=== PATIENT | male | born 1940 | race Caucasian/White ===

== ENCOUNTER 2017-12-16 07:48 | Day surgery (SDC) | payer MEDICARE, SELFPAY ==
[2017-12-16] MEDS: PROPARACAINE 0.5% OPHTH SOL 2 DROPS EYE-OP (08:32)
[2017-12-16] MEDS: CATARACT EYE COMPOUND (10 DROPS/SYRINGE) 3 DROPS EYE-OP (08:34)
[2017-12-16 08:36] VITALS: BP 136/66; PULSE 70; RESP 16; TEMP 36.4; O2SAT 97
--- NOTE | 2017-12-16 09:39 | SUR.OPER ---
Supine on eye stretcher, head on extension cradle secured with tape. Arms tucked at sides with blanket. Pillow under knees.
[2017-12-16] MEDS: CHONDROIDTIN/SOD HYALURONATE 1.05 ML SYRINGE INTRAOCULA (09:43)
[2017-12-16] MEDS: LIDOCAINE JELLY 2% 5 ML 1 APPLIC TOP (09:43)
[2017-12-16] MEDS: TETRACAINE 0.5% OPHTH DROPS 15 ML 2 DROPS EYE-RIGHT (09:44)
[2017-12-16] MEDS: MOXIFLOXACIN OPHTH DROPS 3 ML BOTTLE 2 DROPS INJ (09:44)
[2017-12-16] MEDS: PHENYLEPHRINE/LIDOCAINE 3ML VIAL (OR) EYE-OP (09:44)
[2017-12-16] MEDS: TRIAMCINOLONE 50 MG/5 ML VIAL INJ (09:44)
[2017-12-16] MEDS: BALANCED SALT IRRIG SOLN NO.2 500 ML, EPINEPHrine 1 MG IRR (09:45)
--- NOTE | 2017-12-16 09:51 | P.OP_ITS ---
Operative Date/Time/Diagnoses - Pre-op diagnosis: Cataract Right eye Post-op diagnosis: same Procedure & Clinicians Procedure: Cataract Surgery Same procedure as scheduled: Yes Surgeon: Willie Osorio Anesthesia Type: MAC +/- and Sedation Operative Notes Procedure in detail: Patient brought to the operating suite. Tetracaine drops placed in the right eye. Patient was prepped and draped in sterile manner. Wire lid speculum was placed in the eye. Betadine drops were placed on the eye. This was irrigated. Lidocaine jelly was placed on the eye. A paracentesis port was created with a side-port blade. 0.1 mL 1% preservative free lidocaine was injected into the anterior chamber. The anterior chamber was deepened with viscoelastic. 2.6 mm keratome was used to create a temporal clear corneal incision. Cystotome and Utrata forceps were used to create continuous tear capsulorrhexis. Balanced salt solution was used to hydro dissect the nucleus. The phacoemulsification handpiece was inserted and the nucleus was removed using the stop and chop technique. The irrigation aspiration handpiece was inserted and the remaining cortex was removed. Anterior chamber was deepened with viscoelastic. An Harper ZCB00 intraocular lens with a power of 21.5 was injected into the capsular bag. Irrigation aspiration handpiece was inserted and the remaining viscoelastic was removed. Incision was hydrated with balanced salt solution and found to be leak free with pressure with Weck- Socorro sponges. 0.1 mL Vigamox injected anterior chamber. 0.3 mL Kenalog 10 mg was injected subconjunctivally. Lid speculum was removed. The patient left the operating room in excellent condition. Complications: none Condition: stable Disposition: same day surgery
[2017-12-16 09:55] VITALS: BP 132/71; PULSE 63; RESP 16; TEMP 36.3; O2SAT 95
== END 2017-12-16 10:00 | disposition home or self-care (01) ==
PROVIDERS: Family Provider Internal Medicine; PCP Internal Medicine; Visit Provider Ophthalmology
DX: H25.11 Age-related nuclear cataract, right eye (principal); I10 Essential (primary) hypertension
CPT/HCPCS: J0171; J2250; J3010; J3301

== ENCOUNTER 2017-12-30 08:03 | Day surgery (SDC) | payer MEDICARE, SELFPAY ==
[2017-12-30 08:31] VITALS: BP 133/66; PULSE 60; RESP 16; TEMP 36.4; O2SAT 98
[2017-12-30] MEDS: PROPARACAINE 0.5% OPHTH SOL 2 DROPS EYE-OP (08:34)
[2017-12-30] MEDS: CATARACT EYE COMPOUND (10 DROPS/SYRINGE) 3 DROPS EYE-OP ×3 (08:40→08:50)
--- NOTE | 2017-12-30 09:37 | PM.PREOP ---
Pre-operative Note Interval Note Pre-op Check: History & Physical Reviewed by Physician
--- NOTE | 2017-12-30 09:42 | PM.PREOP ---
Pre-operative Note Interval Note Pre-op Check: History & Physical Reviewed by Physician
[2017-12-30] MEDS: TRIAMCINOLONE 50 MG/5 ML VIAL INJ (09:49)
[2017-12-30] MEDS: CHONDROIDTIN/SOD HYALURONATE 1.05 ML SYRINGE INTRAOCULA (09:49)
[2017-12-30] MEDS: MOXIFLOXACIN OPHTH DROPS 3 ML BOTTLE 2 DROPS INJ (09:49)
[2017-12-30] MEDS: TETRACAINE 0.5% OPHTH DROPS 15 ML 2 DROPS EYE-LEFT (09:50)
[2017-12-30] MEDS: PHENYLEPHRINE/LIDOCAINE 3ML VIAL (OR) EYE-OP (09:51)
[2017-12-30] MEDS: LIDOCAINE JELLY 2% 5 ML 1 APPLIC TOP (09:52)
--- NOTE | 2017-12-30 10:01 | P.OP_ITS ---
Operative Date/Time/Diagnoses - Pre-op diagnosis: Cataract Left eye Post-op diagnosis: same Procedure & Clinicians Surgeon: Willie Osorio Anesthesia Type: MAC +/- and Sedation Operative Notes Procedure in detail: Patient brought to the operating suite. Tetracaine drops placed in the left eye. Patient was prepped and draped in sterile manner. Wire lid speculum was placed in the eye. Betadine drops were placed on the eye. This was irrigated. Lidocaine jelly was placed on the eye. A paracentesis port was created with a side-port blade. 0.1 mL 1% preservative free lidocaine was injected into the anterior chamber. The anterior chamber was deepened with viscoelastic. 2.6 mm keratome was used to create a temporal clear corneal incision. Cystotome and Utrata forceps were used to create continuous tear capsulorrhexis. Balanced salt solution was used to hydro dissect the nucleus. The phacoemulsification handpiece was inserted and the nucleus was removed using the stop and chop technique. The irrigation aspiration handpiece was inserted and the remaining cortex was removed. Anterior chamber was deepened with viscoelastic. An Harper ZCB00 intraocular lens with a power of 21.0 was injected into the capsular bag. Irrigation aspiration handpiece was inserted and the remaining viscoelastic was removed. Incision was hydrated with balanced salt solution and found to be leak free with pressure with Weck- Socorro sponges. 0.1 mL Vigamox injected anterior chamber. 0.3 mL Kenalog 10 mg was injected subconjunctivally. Lid speculum was removed. The patient left the operating room in excellent condition. Complications: none Condition: stable Disposition: same day surgery
[2017-12-30 10:15] VITALS: BP 122/71; PULSE 53; RESP 16; TEMP 36.6; O2SAT 96
== END 2017-12-30 10:14 ==
PROVIDERS: PCP Internal Medicine; Visit Provider Ophthalmology
DX: H25.12 Age-related nuclear cataract, left eye (principal); I10 Essential (primary) hypertension
CPT/HCPCS: J2250; J3010; J3301

== ENCOUNTER → 2019-08-04 08:44 | Outpatient (CLI) | payer MEDICARE, SELFPAY ==
[2019-08-04 10:09] LABS: Aspartate Aminotransferase 28 IU/L (17-59); Blood Urea Nitrogen 22 mg/dL (9-20); Calcium 9.6 mg/dL (8.4-10.2); Carbon Dioxide 32 mmol/L (22-32); Chloride 98 mmol/L (98-107); Cholesterol 133 mg/dL (140-199); Estimated Glomerular Filt Rate > 60.0 mL/min (>60); Glucose 102 mg/dL (80-110); HDL Cholesterol 59 mg/dL (40-60); HEMOLYSIS < 15 (0-50); LDL Cholesterol Calculated 60 mg/dL (<100); Potassium 3.8 mmol/L (3.4-5.1); Sodium 138 mmol/L (137-145); Triglycerides 72 mg/dL (35-150)
== END ==
PROVIDERS: PCP Internal Medicine; Visit Provider Internal Medicine
DX: I10 Essential (primary) hypertension (principal); E78.2 Mixed hyperlipidemia
CPT/HCPCS: 36415; 80048; 80061; 84450

== ENCOUNTER → 2020-09-27 15:24 | Outpatient (ROUT) | payer MEDICARE, SELFPAY ==
[2020-09-27 17:39] LABS: Aspartate Aminotransferase 34 IU/L (17-59); BUN Creatinine Ratio 22.4 (6-22); Blood Urea Nitrogen 22 mg/dL (9-20); Calcium 9.6 mg/dL (8.4-10.2); Carbon Dioxide 32 mmol/L (22-32); Chloride 98 mmol/L (98-107); Cholesterol 125 mg/dL (140-199); Estimated Glomerular Filt Rate > 60.0 mL/min (>60); Glucose 96 mg/dL (80-110); HDL Cholesterol 58 mg/dL (40-60); HEMOLYSIS < 15 (0-50); LDL Cholesterol Calculated 50 mg/dL (<100); Potassium 4.1 mmol/L (3.4-5.1); Sodium 135 mmol/L (137-145); Triglycerides 85 mg/dL (35-150)
== END ==
PROVIDERS: PCP Internal Medicine; Visit Provider Internal Medicine
DX: E78.2 Mixed hyperlipidemia (principal); I10 Essential (primary) hypertension
CPT/HCPCS: 80048; 80061; 84450

== ENCOUNTER → 2021-10-29 15:38 | Outpatient (CLI) | payer MEDICARE, SELFPAY ==
[2021-10-29 16:37] LABS: Hematocrit 41.9 % (41-53); Hemoglobin 14.4 g/dL (13.5-17.5); Mean Corpuscular HGB Conc 34.4 % (30-36); Mean Corpuscular Hemoglobin 30.8 PG (26-34); Mean Corpuscular Volume 89.5 fL (80-100); Platelet Count 227 X10^3/uL (150-400); Red Blood Cell Count 4.68 X10^6/uL (4.5-5.9); Red Cell Distribution Width 13.5 % (11.6-14.8); White Blood Cell Count 6.3 X10^3/uL (4.5-11.0)
[2021-10-29 16:48] LABS: Alanine Aminotransferase 26 IU/L (<50); Albumin 4.6 g/dL (3.5-5.0); Albumin Globulin Ratio 1.4 (1.0-2.8); Alkaline Phosphatase 40 U/L (38-126); Aspartate Aminotransferase 29 IU/L (17-59); BUN Creatinine Ratio 24.2 (6-22); Bilirubin Total 0.8 mg/dL (0.2-1.3); Blood Urea Nitrogen 29 mg/dL (9-20); Calcium 9.2 mg/dL (8.4-10.2); Carbon Dioxide 34 mmol/L (22-32); Chloride 98 mmol/L (98-107); Cholesterol 139 mg/dL (140-199); Estimated Glomerular Filt Rate > 60 mL/min (>60); Globulin 3.2 g/dL (1.7-4.1); Glucose 102 mg/dL (80-110); HDL Cholesterol 62 mg/dL (40-60); HEMOLYSIS < 15 (0-50); LDL Cholesterol Calculated 55 mg/dL (<100); Potassium 3.6 mmol/L (3.4-5.1); Sodium 140 mmol/L (137-145); Total Protein 7.8 g/dL (6.3-8.2); Triglycerides 108 mg/dL (35-150)
[2021-10-29 17:38] LABS: TSH w/ Reflex to FT4 1.54 uIU/mL (0.47-4.68)
== END ==
PROVIDERS: PCP Internal Medicine; Referring Provider Internal Medicine; Visit Provider Internal Medicine
DX: E78.2 Mixed hyperlipidemia (principal); R06.00 Dyspnea, unspecified; I10 Essential (primary) hypertension
CPT/HCPCS: 36415; 80053; 80061; 84443; 85027

== ENCOUNTER → 2021-12-12 14:49 | Outpatient (CLI) | payer MEDICARE, SELFPAY ==
--- NOTE | 2021-12-12 14:50 | DI.ECHO.S_ITS ---
[facility]---------+ [facility] +---------+ : : [address] : : : : [id number] : : : : Phone: [phone]+ Echocardiogram Report + + :Name: FELA SANCHES Study Date: 12/12/2021 Height: 70 in : :[facility] ReadingLocation: Weight: 195 lb : : Gender: Male BSA: 2.1 m2 : :: 1940 Age: 81 yrs BP: 131/56 mmHg: :Reason For Study: HEART MURMUR, DYSPNEA : :Ordering Physician: REED, : :PER Performed By: Beba Jim : :Referring: PER MCBRIDE : + + Interpretation Summary The left ventricle is normal in size and wall thickness. Left ventricular systolic function appears normal without focal wall motion abnormalities. The ejection fraction is estimated to be 60-65%. Diastolic parameters suggest a relaxation abnormality of the left ventricle, consistent with probable normal filling pressures. The right ventricle is normal in size and function. The right ventricular systolic pressure is estimated to be at least 28 mmHg based on an estimated right atrial pressure of 3 mm Hg. The left atrium is mildly dilated. Right atrial size is normal. The aortic valve is mildly calcified. There is no hemodynamically significant valvular aortic stenosis. There is no other significant valvular heart disease. The aortic root is normal size. Procedure: A two-dimensional transthoracic echocardiogram with color flow and Doppler was performed. The study quality was technically adequate. There is no prior echocardiogram noted for this patient. The patient was in sinus bradycardia with heart rates between 59-65 bpm during the exam. Left Ventricle: The left ventricle is normal in size and wall thickness. Left ventricular systolic function appears normal without focal wall motion abnormalities. The ejection fraction is estimated to be 60-65%. Diastolic parameters suggest a relaxation abnormality of the left ventricle, consistent with probable normal filling pressures. Right Ventricle: The right ventricle is normal in size and function. Atria: The left atrium is mildly dilated. Right atrial size is normal. There is no Doppler evidence for an interatrial shunt. Mitral Valve: The mitral valve leaflets appear mildly thickened, but open well. There is trace mitral regurgitation. Aortic Valve: The aortic valve is mildly calcified. The aortic valve is trileaflet. There is mild aortic valve sclerosis. There is no hemodynamically significant valvular aortic stenosis. The peak aortic velocity is 2.3 m/sec. The aortic valve mean gradient is 122 mmHg. No aortic regurgitation is present. Tricuspid Valve: The tricuspid valve is normal in structure and function. There is mild tricuspid regurgitation. The right ventricular systolic pressure is estimated to be at least 28 mmHg based on an estimated right atrial pressure of 3 mm Hg. Pulmonic Valve: The pulmonic valve leaflets are thin and pliable; valve motion is normal. There is a trace or physiologic amount of pulmonic regurgitation. There is no other significant valvular heart disease. Great Vessels: The aortic root is normal size. The dimensions of the ascending aorta are normal. The IVC is of normal diameter and collapses greater than 50% with a sniff. This suggests a low right atrial pressure of 3 mm Hg. Pericardium/ Pleura There is no pericardial effusion. There is no pleural effusion. MMode/2D Measurements & Calculations LVIDd: 4.2 cm LVOT diam: 2.2 cm LVIDs: 2.7 cm Ao root diam: 3.5 cm FS: 37.0 % asc Aorta Diam: 3.2 cm IVSd: 0.80 cm Ao Arch Diam (Prox Trans): 3.0 cm LVPWd: 0.82 cm LV amado. diameter/BSA (cm/m^2): 2.0 LV sys. diameter/BSA (cm/m^2): 1.3 LA A2 area: 23.0 cm2 RA long axis: 5.2 cm LA A4 area: 23.1 cm2 RA area: 16.2 cm2 LA length (vol): 5.8 cm RA vol: 42.6 ml LA vol: 77.4 ml RA : 20.6 ml/m2 LA vol index: 37.5 ml/m2 IVC diam: 1.1 cm RVD1 (basal): 3.8 cm RVD2 (mid): 3.2 cm TAPSE: 2.2 cm Doppler Measurements & Calculations Ao V2 max: 231.1 cm/sec LVOT Max Barrie: 128.0 cm/sec Ao V2 mean: 153.5 cm/sec LV V1 max P.6 mmHg Ao max P.5 mmHg LV V1 VTI: 25.4 cm Ao mean P.1 mmHg VERONICA(I,D): 2.2 cm2 Ao V2 VTI: 45.0 cm VERONICA(V,D): 2.1 cm2 sev ratio: 0.57 VERONICA indexed to BSA (cm^2/m^2): 1.0 MV E max barrie: 71.9 cm/sec TR max barrie: 249.3 cm/sec MV A max barrie: 87.2 cm/sec TR max P.9 mmHg MV E/A: 0.83 PA V2 max: 104.9 cm/sec Med Peak E' Barrie: 6.1 cm/sec PA V2 mean: 72.3 cm/sec E/E' med: 11.8 PA mean P.3 mmHg Lat Peak E' Barrie: 7.2 cm/sec PA pr(Accel): 43.0 mmHg E/E' lat: 10.0 E/e' average: 10.9 MV dec time: 0.36 sec SV(LVOT): 97.4 ml Reading Physician:04:49 PM
== END ==
PROVIDERS: PCP Internal Medicine; Referring Provider Internal Medicine; Visit Provider Internal Medicine
DX: R01.1 Cardiac murmur, unspecified (principal); R06.00 Dyspnea, unspecified
CPT/HCPCS: 93306

== ENCOUNTER 2022-01-02 08:59 | Observation (INO) | payer MEDICARE, SELFPAY ==
[2022-01-02 09:05] VITALS: BP 167/71; PULSE 67; RESP 16; O2SAT 98; BMI 28.8
[2022-01-02 09:30] LABS: Add Manual Diff / Slide Review NO; Basophils Absolute Auto 100 /uL (0-100); Basophils Percent Auto 0.5 % (0-2); Eosinophils Absolute Auto 100 /uL (0-450); Eosinophils Percent Auto 0.5 % (2-4); Hematocrit 43.9 % (41-53); Hemoglobin 14.7 g/dL (13.5-17.5); Lymphocytes Absolute Auto 1100 /uL (1100-4500); Lymphocytes Percent Auto 9.3 % (25-40); Mean Corpuscular HGB Conc 33.4 % (30-36); Mean Corpuscular Hemoglobin 30.1 PG (26-34); Mean Corpuscular Volume 89.9 fL (80-100); Monocytes Absolute Auto 1000 /uL (0-900); Monocytes Percent Auto 8.6 % (3-14); Neutrophils Absolute Auto 9900 /uL (1500-7000); Neutrophils Percent Auto 81.1 % (50-75); Platelet Count 276 X10^3/uL (150-400); Red Blood Cell Count 4.88 X10^6/uL (4.5-5.9); Red Cell Distribution Width 12.9 % (11.6-14.8); White Blood Cell Count 12.2 X10^3/uL (4.5-11.0)
[2022-01-02 09:41] LABS: Alanine Aminotransferase 29 IU/L (<50); Albumin 4.5 g/dL (3.5-5.0); Albumin Globulin Ratio 1.3 (1.0-2.8); Alkaline Phosphatase 59 U/L (38-126); Aspartate Aminotransferase 33 IU/L (17-59); BUN Creatinine Ratio 19.4 (6-22); Bilirubin Total 1.1 mg/dL (0.2-1.3); Blood Urea Nitrogen 19 mg/dL (9-20); Carbon Dioxide 31 mmol/L (22-32); Chloride 99 mmol/L (98-107); Estimated Glomerular Filt Rate > 60 mL/min (>60); Globulin 3.5 g/dL (1.7-4.1); Glucose 112 mg/dL (80-110); Lipase 63 U/L (23-300); Potassium 4.3 mmol/L (3.4-5.1); Sodium 137 mmol/L (137-145)
[2022-01-02 09:43] LABS: HEMOLYSIS 97 (0-50)
--- NOTE | 2022-01-02 10:08 | ED.ABDPAIN ---
HPI - Abdominal Pain General Chief Complaint: Abdominal Pain Stated Complaint: [facility] sent for imaging- possible diverticulitis Time Seen by Provider: 01/02/22 09:41 Source: patient Mode of arrival: Ambulatory Limitations: no limitations History of Present Illness HPI narrative: Patient presents with left lower quadrant pain for about 2 weeks. Pain is increased in recent days. He has no fever, he had chills last night. He has no nausea or vomiting, he does have decreased appetite. He has normal bowel movements. He has no bloody bowel movements. He does have BPH. He does have slight decrease in urine output, but no dysuria or hematuria. He has intermittent scrotal pain. He has no chronic GI symptoms. He does have a history of BPH, but does not require medications. Related Data Home Medications Medication Instructions Recorded Confirmed famotidine 20 mg chewable tablet 5 mg PO DAILY PRN Acid Reflux 10/29/21 01/02/22 Previous Rx's Medication Instructions Recorded losartan 100 1 tab PO DAILY #90 tabs 10/29/21 mg-hydrochlorothiazide 25 mg tablet rosuvastatin 10 mg tablet 10 mg PO DAILY #90 tabs 10/29/21 Allergies Allergy/AdvReac Type Severity Reaction Status Date / Time codeine Allergy Unknown rapid Verified 01/02/22 09:08 heart rate Review of Systems Constitutional Constitutional: Reports as per HPI, Denies body ache(s), Denies chills, Denies fatigue and Denies fever(s) ENT Ears, Nose, Mouth, and Throat: Denies vertigo and Denies dizziness Comments: No ENT complaints. Cardiovascular Cardiovascular: Denies chest pain, Denies rapid heart rate and Denies dyspnea Respiratory Respiratory: Denies chest congestion, Denies cough and Denies dyspnea Gastrointestinal Gastrointestinal: Denies melena, Denies bloating, Denies coffee ground emesis and Denies nausea Genitourinary Genitourinary: Denies dysuria, Denies urinary frequency and Reports urinary hesitancy Musculoskeletal Musculoskeletal: Denies back pain Integumentary/Breasts Skin/Breast: Denies rash and Denies skin pain Neurologic Neurologic: Denies confusion, Denies vertigo and Denies dizziness Psychiatric Psychiatric: Denies confusion Endocrine Endocrine: Denies fatigue Hematologic/Lymphatic On Anticoagulants: No Patient History Medical History Allergic rhinitis Benign essential tremor Do not resuscitate Dyspnea on exertion Encounter for general adult medical examination without abnormal findings Essential hypertension GERD without esophagitis Heart murmur Mixed hyperlipidemia Osteoarthritis of both thumbs Social History household members: spouse Smoking Status: Former smoker Smoking Status: Former smoker alcohol intake frequency: holidays/special occasions only Substance Use Type: does not use Exam Initial Vital Signs Initial Vital Signs: Vital Signs Pulse Rate 67 01/02/22 09:05 Respiratory Rate 16 01/02/22 09:05 Blood Pressure 167/71 H 01/02/22 09:05 Pulse Oximetry 98 01/02/22 09:05 Oxygen Delivery Method 01/02/22 09:05 Const General: cooperative, healthy appearing, comfortable and well developed HENMT Head: normal to inspection, normocephalic and atraumatic Face and sinus: normal facial exam Mouth: oropharynx normal Chest Chest: No tenderness Resp Auscultation: clear to auscultation bilaterally Cardio Rate: regular rate Rhythm: regular rhythm Heart Sounds: S1 normal, S2 normal, no click and murmur systolic early and II/ GI Other: LLQ tenderness without guarding or rebound. Rectal exam shows normal tone. He is 2+BPH, no prostate tenderness. Back/Spine/Pelvis Back: No CVA tenderness Skin General: no rashes or lesions noted Neuro General: patient alert, patient awake, patient oriented x3 and no focal motor deficits Extrem General: normal to inspection, full ROM, no pedal edema and no calf tenderness Psych Appearance: grossly normal Course Course Course Narrative: The patient was found to have diverticulitis with a 2.2 cm pericolic abscess. I discussed the findings with the local radiologist, Dr Castellon. Per Radiology criteria, abscess less than 3 cm is probably be conducive to antibiotics. An abscess less than 3 cm is not conducive to external drainage. Case was discussed with the hospitalist, Dr. Mccoy. The patient is started on Zosyn and admitted to the hospital treatment of diverticulitis. Orders Ordered: Acetaminophen (Acetaminophen 325 Mg Tablet) 650 mg PO Q6HR PRN PRN Reason: pain, fever Enoxaparin Sodium (Enoxaparin 40 Mg/0.4 Ml Syringe) 40 mg SUBCUT DAILY ANDRESSA Sodium Chloride (Normal Saline 0.45%) 1,000 mls @ 100 mls/hr IV CONT ANDRESSA Piperacillin Sod/Tazobactam (Sod 3.375 gm/ Sodium Chloride) 100 mls @ 25 mls/hr IV Q8H ANDRESSA Morphine Sulfate (Morphine 2 Mg/Ml Inj) 2 mg IV Q4H PRN PRN Reason: Breakthrough pain only (8-10) Naloxone HCl (Naloxone 0.4 Mg/Ml Vial) 0.2 mg IV Q2MIN PRN PRN Reason: Opiate Reversal Ondansetron HCl (Ondansetron 4 Mg/2 Ml Inj) 4 mg IV Q8HR PRN PRN Reason: Nausea And Vomiting Discontinued Medications Sodium Chloride (Normal Saline 0.9%) 1,000 mls @ 250 mls/hr IV CONT ANDRESSA Last Infusion: 01/02/22 15:00 Dose: 0 mls/hr Documented By: Admin: 01/02/22 10:56 Dose: 250 mls/hr Documented By: CHRISTIANO Piperacillin Sod/Tazobactam (Sod 4.5 gm/ Sodium Chloride) 100 mls @ 200 mls/hr IV NOW ONE Stop: 01/02/22 13:39 Last Infusion: 01/02/22 14:55 Dose: 0 mls/hr Documented By: Admin: 01/02/22 13:55 Dose: 200 mls/hr Documented By: CHRISTIANO Ondansetron HCl (Ondansetron 4 Mg/2 Ml Inj) 4 mg IV NOW ONE Stop: 01/02/22 16:39 Last Admin: 01/02/22 16:43 Dose: 4 mg Documented By: CHRISTIANO Vital Signs Vital signs: Vital Signs - 8 hr 01/02/22 09:05 Pulse Rate 67 Respiratory Rate 16 Blood Pressure 167/71 H Pulse Oximetry 98 Oxygen Delivery Method Room Air MDM - Abdominal Pain Lab Data Result diagrams: 01/02/22 09:20 01/02/22 09:20 Labs: Lab Results 01/02/22 01/02/22 Range/Units 09:20 09:20 WBC 12.2 H (4.5-11.0) X10^3/uL RBC 4.88 (4.5-5.9) X10^6/uL Hgb 14.7 (13.5-17.5) g/dL Hct 43.9 (41-53) % MCV 89.9 (80-100) fL MCH 30.1 (26-34) PG MCHC 33.4 (30-36) % RDW 12.9 (11.6-14.8) % Plt Count 276 (150-400) X10^3/uL Neut % (Auto) 81.1 H (50-75) % Lymph % (Auto) 9.3 L (25-40) % [place] % (Auto) 8.6 (3-14) % Eos % (Auto) 0.5 L (2-4) % Baso % (Auto) 0.5 (0-2) % Neut # (Auto) 9900 H (6499-6295) /uL Lymph # (Auto) 1100 (8322-1356) /uL [place] # (Auto) 1000 H (0-900) /uL Eos # (Auto) 100 (0-450) /uL Baso # (Auto) 100 (0-100) /uL Sodium 137 (137-145) mmol/L Potassium 4.3 (3.4-5.1) mmol/L Chloride 99 (98-107) mmol/L Carbon Dioxide 31 (22-32) mmol/L BUN 19 (9-20) mg/dL Creatinine 0.98 (0.66-1.25) mg/dL Estimated GFR > 60 (>60) mL/min BUN/Creatinine Ratio 19.4 (6-22) Glucose 112 H (80-110) mg/dL Calcium 9.0 (8.4-10.2) mg/dL Total Bilirubin 1.1 (0.2-1.3) mg/dL AST 33 (17-59) IU/L ALT 29 (<50) IU/L Alkaline Phosphatase 59 (38-126) U/L Total Protein 8.0 (6.3-8.2) g/dL Albumin 4.5 (3.5-5.0) g/dL Globulin 3.5 (1.7-4.1) g/dL Albumin/Globulin Ratio 1.3 (1.0-2.8) Lipase 63 (23-300) U/L Imaging Data CT scan - abdomen/pelvis: My Impression: PROCEDURE:? CT ABDOMEN PELVIS W CON ? INDICATIONS:? left lower quad pains ? TECHNIQUE:? After the administration of intravenous contrast, axial sections acquired from the lung bases to the pubic symphysis.? Coronal and sagittal reformats were performed.? For radiation dose reduction, the following was used:? automated exposure control, adjustment of mA and/or kV according to patient size.? ? COMPARISON:? None. ? FINDINGS: ? Lower thorax: The lung bases are clear.? Heart size normal.? No hiatal hernia. ? Liver:? Normal in size and attenuation. No contour deformity present. ? Biliary system:? Cholecystectomy.? No intra or extrahepatic bile duct dilation. ? Pancreas:? Unremarkable without mass or inflammation evident. ? Spleen:? Normal in size and density. ? Adrenals:? Normal morphology and density. ? Reproductive system:? Prostatic hypertrophy elevates the bladder floor.? ? Urinary system:? Bilateral nonobstructive renal calculi measure up to 8 mm. Small bilateral renal cysts measure up to 2.4 cm on the left.? No hydronephrosis. ? Gastrointestinal system:? Multiple diverticula arise from the sigmoid colon.? In the mid sigmoid, there is bowel wall thickening and pericolonic inflammatory change associated with small pericolonic 2.2 cm abscess.? Atherosclerotic calcification in the abdominal aorta noted without evidence of aneurysm.? ? Appendix:? No findings to suggest acute appendicitis. ? Peritoneal spaces:? No mesenteric or retroperitoneal adenopathy.? No free air.? No free fluid.? ? Vasculature:? Aortic atherosclerotic vascular calcification noted without evidence of aneurysm. ? Abdominal wall:? Left inguinal hernia contains fat without bowel involvement ? Musculoskeletal:? Normal bone mineralization.? No acute fractures.? ? IMPRESSION: ? 1. Acute diverticulitis associated with 2.2 cm pericolonic abscess.? Abscess would be amenable to CT-guided percutaneous drainage.? No obstruction or free air. ? 2. Chronic findings as above ? Approved by: Jeff Perez M.D. on 01/02/2022 at 10:24? ECG Data Attestation: I personally reviewed and interpreted this ECG as follows: (Normal sinus rhythm rate 65 beats per minute. Left axis deviation. No ectopy. No acute ST T wave changes.) Critical Care Time Critical Care Time Critical Care Time: Yes Total Critical Care Time: 40 Attestation: Critical care time includes initial assessment patient, review of past medical records, review of Radiology and lab data. The patient was informed the situation. Case was discussed with multiple physicians prior to admission. See details above. Discharge Plan Departure Patient Disposition: Admitted As Inpatient Clinical Impression: Diverticulitis of intestine with abscess Admit Date/Time: 01/02/22 13:40 Admit Provider: Kanu Mccoy
--- NOTE | 2022-01-02 10:26 | DI.CT.S_ITS ---
PROCEDURE: CT ABDOMEN PELVIS W CON INDICATIONS: left lower quad pains TECHNIQUE: After the administration of intravenous contrast, axial sections acquired from the lung bases to the pubic symphysis. Coronal and sagittal reformats were performed. For radiation dose reduction, the following was used: automated exposure control, adjustment of mA and/or kV according to patient size. COMPARISON: None. FINDINGS: Lower thorax: The lung bases are clear. Heart size normal. No hiatal hernia. Liver: Normal in size and attenuation. No contour deformity present. Biliary system: Cholecystectomy. No intra or extrahepatic bile duct dilation. Pancreas: Unremarkable without mass or inflammation evident. Spleen: Normal in size and density. Adrenals: Normal morphology and density. Reproductive system: Prostatic hypertrophy elevates the bladder floor. Urinary system: Bilateral nonobstructive renal calculi measure up to 8 mm. Small bilateral renal cysts measure up to 2.4 cm on the left. No hydronephrosis. Gastrointestinal system: Multiple diverticula arise from the sigmoid colon. In the mid sigmoid, there is bowel wall thickening and pericolonic inflammatory change associated with small pericolonic 2.2 cm abscess. Atherosclerotic calcification in the abdominal aorta noted without evidence of aneurysm. Appendix: No findings to suggest acute appendicitis. Peritoneal spaces: No mesenteric or retroperitoneal adenopathy. No free air. No free fluid. Vasculature: Aortic atherosclerotic vascular calcification noted without evidence of aneurysm. Abdominal wall: Left inguinal hernia contains fat without bowel involvement Musculoskeletal: Normal bone mineralization. No acute fractures. IMPRESSION: 1. Acute diverticulitis associated with 2.2 cm pericolonic abscess. Abscess would be amenable to CT-guided percutaneous drainage. No obstruction or free air. 2. Chronic findings as above Approved by: Jeff Perez M.D. on 01/02/2022 at 10:24
[2022-01-02] MEDS: SODIUM CHLORIDE 0.9% 1,000 ML 250 ML IV (10:56)
[2022-01-02] MEDS: PIPERACILLIN/TAZO 4.5 GM in SODIUM CHLORIDE 0.9% 100 ML IV (13:55)
[2022-01-02 14:13] LABS: Amorphous Sediment Urine 1+; Bacteria Urine None Seen; Culture Indicated Urine Cult Not Indicated; Mucus Urine 1+ (Negative); RBC Urine None Seen (0-5/HPF); Squamous Epithelial Cell Urine 0-1 /HPF (0-5/HPF); WBC Urine None Seen (0-5/HPF)
[2022-01-02 14:38] LABS: COVID19 -Nasal RAPID Negative (Negative)
[2022-01-02 16:29] VITALS: BP 119/59; RESP 16
[2022-01-02] MEDS: ONDANSETRON 4 MG/2 ML INJ IV (16:43)
[2022-01-02 17:00] VITALS: BP 141/91; PULSE 64; RESP 16; TEMP 36.6; O2SAT 96; O2SAT 97
[2022-01-02 17:35] VITALS: BMI 28.0
--- NOTE | 2022-01-02 18:46 | PM.HP.1 ---
History of Present Illness History of Present Illness Date Patient Seen: 01/02/22 Time Patient Seen: 17:00 Chief complaint: [facility] sent for imaging- possible diverticulitis Narrative: Mr. Rider is an 81M with PMH HTN, HL who presents with abdominal pain. He says it is located in left lower quadrant. It started two weeks ago. It has increased slightly, but he is mostly worried because it has not gone away after weeks. He had chills, no fevers. No nausea, vomiting, diarrhea. He has colonoscopy years ago, none recently. No abnormal weight loss. In the ED workup was done, vitals notable for elevated blood pressure. Labs notable for WBC 12.2, hgb 14.7, plts 276. Creatinine 0.98. CT of abdomen showed diverticulitis with 2.2cm pericolonic abscess. He was ordered for IV fluids and antibiotics and admitted for further treatment. Radiology was contacted about possible drainage but noted that the abscess is too small to drain. Family history: no history of GI cancers Patient History Medical History Allergic rhinitis Benign essential tremor Do not resuscitate Dyspnea on exertion Encounter for general adult medical examination without abnormal findings Essential hypertension GERD without esophagitis Heart murmur Mixed hyperlipidemia Osteoarthritis of both thumbs Family & Social History Social History: household members spouse Safety & Behavioral: Feels Safe in Current Yes Environment Been Physically Hurt or No Threatened By a Person Tobacco & Substance use: Smoking Status Former smoker alcohol intake frequency holiday/special occasion Substance Use Type does not use Meds Home Medications and Allergies Home Medications Medication Instructions Recorded Confirmed Type famotidine 20 mg chewable tablet 5 mg PO DAILY PRN Acid Reflux 10/29/21 01/02/22 History losartan 100 1 tab PO DAILY #90 tabs 10/29/21 01/02/22 Rx mg-hydrochlorothiazide 25 mg tablet rosuvastatin 10 mg tablet 10 mg PO DAILY #90 tabs 10/29/21 01/02/22 Rx Allergies Allergy/AdvReac Type Severity Reaction Status Date / Time codeine Allergy Unknown rapid Verified 01/02/22 09:08 heart rate Review of Systems Review of Systems Narrative: 14 systems reviewed and negative aside from what is noted in HPI Exam Vital Signs (past 8 hours): - 01/02/22 16:29 01/02/22 17:00 Pulse Rate 64 Respiratory Rate 16 Blood Pressure 119/59 L Pulse Oximetry 96 Oxygen Delivery Method Room Air Narrative Exam Narrative: GEN: no acute distress HEENT: moist mucous membranes, PERRL NECK: trachea midline, no jVD CV: regular rate and rhythm, no murmurs PULM: clear bilaterally, no wheezes, rhonchi rales ABD: soft, mild suprapubic tenderness, no rebound/guarding, diminished bowel sounds EXT: warm and well perfused with no edema NEURO: awake, alert, oriented, no focal deficits Objective Labs Result Diagrams: 01/02/22 09:20 01/02/22 09:20 Labs: Laboratory Results - last 24 hr 01/02/22 01/02/22 01/02/22 09:20 09:20 14:00 WBC 12.2 H RBC 4.88 Hgb 14.7 Hct 43.9 MCV 89.9 MCH 30.1 MCHC 33.4 RDW 12.9 Plt Count 276 Neut % (Auto) 81.1 H Lymph % (Auto) 9.3 L [place] % (Auto) 8.6 Eos % (Auto) 0.5 L Baso % (Auto) 0.5 Neut # (Auto) 9900 H Lymph # (Auto) 1100 [place] # (Auto) 1000 H Eos # (Auto) 100 Baso # (Auto) 100 Sodium 137 Potassium 4.3 Chloride 99 Carbon Dioxide 31 BUN 19 Creatinine 0.98 Estimated GFR > 60 BUN/Creatinine Ratio 19.4 Glucose 112 H Calcium 9.0 Total Bilirubin 1.1 AST 33 ALT 29 Alkaline Phosphatase 59 Total Protein 8.0 Albumin 4.5 Globulin 3.5 Albumin/Globulin Ratio 1.3 Lipase 63 Urine RBC Urine WBC Ur Squamous Epith Cells Amorphous Sediment Urine Bacteria Urine Mucus Ur Culture Indicated? SARS-CoV-2 (PCR) Negative 01/02/22 14:04 WBC RBC Hgb Hct MCV MCH MCHC RDW Plt Count Neut % (Auto) Lymph % (Auto) [place] % (Auto) Eos % (Auto) Baso % (Auto) Neut # (Auto) Lymph # (Auto) [place] # (Auto) Eos # (Auto) Baso # (Auto) Sodium Potassium Chloride Carbon Dioxide BUN Creatinine Estimated GFR BUN/Creatinine Ratio Glucose Calcium Total Bilirubin AST ALT Alkaline Phosphatase Total Protein Albumin Globulin Albumin/Globulin Ratio Lipase Urine RBC None seen Urine WBC None seen Ur Squamous Epith Cells 0-1 /hpf Amorphous Sediment 1+ Urine Bacteria None seen Urine Mucus 1+ H Ur Culture Indicated? Cult not indicated SARS-CoV-2 (PCR) Assessment & Plan Assessment & Plan narrative: Mr. Rider is an 81M with PMH HTN, HL who comes in with abdominal pain found to have diverticulitis complicated by abscess 1. Acute diverticulitis with abscess -diverticulitis confirmed on CT scan -CT shows additional ~2cm abscess -radiology thinks this is too small for drainage -for now treat with IV antibiotics and switch to oral on discharge -started zosyn -consider outpatient colonoscopy 2. Hypertension -hold home medications for now 3. Hyperlipidemia -hold statin CODE: DNR Proxy: Aliyah Rider, I have utilized all available resources to reconcile the patient's home medications. Time Spent With Patient Critical Care time: I spent a total of [] minutes of critical care time on this patient's care today; this time is exclusive of procedural time. Quality VTE Deep Vein Thrombosis/Pulmonary Embolism Present on Admission: No MIPS - Admit I confirm the patient?s Advance Care Plan is present, Code status is documented, Surrogate decision maker is in patient?s record [If Yes, STOP here]: Yes
[2022-01-02] MEDS: SODIUM CHLORIDE 0.45% 1,000 ML 100 ML IV (19:26)
[2022-01-02 19:41] VITALS: O2SAT 97
[2022-01-02] MEDS: PIPERACILLIN/TAZO 3.375 GM in SODIUM CHLORIDE 0.9% 100 ML IV (20:58)
[2022-01-03] VITALS: BP 149/72; PULSE 69; RESP 17; TEMP 36.8; O2SAT 95
[2022-01-03] MEDS: PIPERACILLIN/TAZO 3.375 GM in SODIUM CHLORIDE 0.9% 100 ML IV (03:33)
[2022-01-03 05:00] VITALS: BP 141/61; PULSE 70; RESP 17; TEMP 36.4; O2SAT 96
[2022-01-03 06:26] LABS: Blood Urea Nitrogen 13 mg/dL (9-20); Calcium 8.2 mg/dL (8.4-10.2); Carbon Dioxide 27 mmol/L (22-32); Chloride 99 mmol/L (98-107); Estimated Glomerular Filt Rate > 60 mL/min (>60); Glucose 104 mg/dL (80-110); HEMOLYSIS < 15 (0-50); Potassium 3.4 mmol/L (3.4-5.1); Sodium 135 mmol/L (137-145)
[2022-01-03 06:35] LABS: NT-proBNP (BNP-Adult 18+) 125 pg/mL (<450)
[2022-01-03] MEDS: ONDANSETRON 4 MG/2 ML INJ IV (07:38)
[2022-01-03 07:43] VITALS: BP 124/69; PULSE 70; RESP 17; TEMP 37; O2SAT 94
[2022-01-03] MEDS: ENOXAPARIN 40 MG/0.4 ML SYRINGE SUBCUT (08:03)
[2022-01-03 10:06] VITALS: O2SAT 94
--- NOTE | 2022-01-03 10:13 | CM.DANOTE ---
DCP Note Payor: Medicare PCP: MD Deja Pt is a 81 y.o. M who was admitted to the floor for possible diverticulitis. Pt complaint of left lower quadrant pain that started two weeks ago. Pt had a CT that showed a 2cm abscess but is too small to drain. Pt on IV abx and to switch to oral upon discharge. recommending outpatient colonoscopy. DCP met with pt and pt spouse this morning. Pt sitting up in chair. DCP introduced herself and role. Pt is independent at baseline and does not use any walking modalities. Pt still drives POV. Pt declines any needs. DCP identifies no needs. Pt has supportive spouse and will go home upon discharge via spouse POV. White board updated in case any needs arise before discharge. Instructed to call. P: Per MD, pt is medically stable for discharge today. Pt will discharge home via spouse POV. Wandy Ferraro RN/VENKAT Discharge Planning/Care Management CM Discharge Assessment Start: 01/03/22 10:12 Freq: Status: Active Protocol: Document 01/03/22 10:12 ELIZABETH (Rec: 01/03/22 10:13 ELIZABETH [id number]) Discharge Planning Assessment Assigned Concrete Finishing Machine Operator Wandy Ferraro RN/VENKAT Advance Directives? Yes Advance Directives on File No History Provided By Patient Prior Living Arrangements House Household Members spouse Type of transporation used prior to Drives own vehicle admit Independent with ADL's Yes Is patient alert and oriented? Yes Caregiver for Another No Barriers to Discharge No Discharge Plan Home Referrals Initiated None needed Whiteboard Updated in Patient Room with Yes name and ext. # of Concrete Finishing Machine Operator Comment Instructed to call if questions arise Review Status In Process Please Provide Date Initial DC 01/03/22 Assessment Was Performed Next Review Type Continued Stay Review
--- NOTE | 2022-01-03 21:15 | P.DS_ITS ---
History of Present Illness History of Present Illness Chief complaint: [facility] sent for imaging- possible diverticulitis Narrative: Mr. Rider is an 81M with PMH HTN, HL who presents with abdominal pain. He says it is located in left lower quadrant. It started two weeks ago. It has increased slightly, but he is mostly worried because it has not gone away after weeks. He had chills, no fevers. No nausea, vomiting, diarrhea. He has colonoscopy years ago, none recently. No abnormal weight loss. In the ED workup was done, vitals notable for elevated blood pressure. Labs notable for WBC 12.2, hgb 14.7, plts 276. Creatinine 0.98. CT of abdomen showed diverticulitis with 2.2cm pericolonic abscess. He was ordered for IV fluids and antibiotics and admitted for further treatment. Radiology was contacted about possible drainage but noted that the abscess is too small to drain. Family history: no history of GI cancers Discharge Providers Provider Date of admission: 01/02/22 13:40 Discharge Date: 01/03/22 Primary care physician: Alfredo Short MD Discharge provider: Kanu Mccoy MD Summary Hospital Course Discharge Diagnosis: 1. Acute diverticulitis with abscess 2. Hypertension Hospital Course: Mr. Rider was admitted with abdominal pain. CT scan showed diverticulitis with 2.2 cm associated abscess. He did not have sepsis. Radiology was contacted and did not think abscess was large enough to drainage. Given small size of abscess treatment success is similar with antibiotics compared with drainage. He was started on antibiotics IV and felt much improved. On day of discharge he tolerated a diet without pain. He was ordered for a 10 day course of ciprofloxacin and flagyl. He should follow up with his PCP and consider possible colonoscopy in at least 6 weeks. Exam Vital Signs (past 8 hours): Oxygen Delivery Method Room Air Oxygen Flow Rate 0 Narrative Exam Narrative: GEN: no acute distress CV: regular rate and rhythm, no murmurs PULM: clear bilaterally, no wheezes, rhonchi rales ABD: soft, mild suprapubic tenderness, no rebound/guarding EXT: warm and well perfused with no edema NEURO: awake, alert, oriented, no focal deficits Objective Labs Result Diagrams: 01/02/22 09:20 01/03/22 04:50 Labs: Laboratory Results - last 24 hr 01/03/22 04:50 Sodium 135 L Potassium 3.4 Chloride 99 Carbon Dioxide 27 BUN 13 Creatinine 0.93 Estimated GFR > 60 BUN/Creatinine Ratio 14.0 Glucose 104 Calcium 8.2 L NT-Pro-B Natriuret Pep 125 PFSH Medical History Allergic rhinitis Benign essential tremor Do not resuscitate Dyspnea on exertion Encounter for general adult medical examination without abnormal findings Essential hypertension GERD without esophagitis Heart murmur Mixed hyperlipidemia Osteoarthritis of both thumbs Social History household members: spouse Smoking Status: Former smoker Discharge Plan Discharge Plan Patient Disposition: Home Provider Discharge Comment: Mr. Rider came in to the hospital with abdominal pain. He had diverticulitis with a small abscess of approximately 2cm. This was too small to be drained. He felt better on antibiotics and will be discharged with 10 more days of antibiotics. He has planned follow up with his PCP this week. If he has worsening pain he should return to the ED. Discharge orders & Medications Prescriptions: New metronidazole 500 mg tablet 500 mg PO TID Qty: 30 0RF levofloxacin 750 mg tablet 750 mg PO DAILY Qty: 10 0RF Continued famotidine 20 mg tablet,chewable 5 mg PO DAILY PRN (Reason: Acid Reflux) rosuvastatin 10 mg tablet 10 mg PO DAILY Qty: 90 3RF losartan-hydrochlorothiazide 100-25 mg tablet 1 tab PO DAILY Qty: 90 3RF Follow up/Referrals: Alfredo Short MD [Primary Care Provider] - Diet/Activity/Treatments Diet: Regular Visit Report/Discharge Packet Instructions: DI for Diverticulitis Discharge Data Primary Care Provider: Alfredo Short V Quality VTE Deep Vein Thrombosis/Pulmonary Embolism Present on Admission: No
== END 2022-01-03 11:13 | disposition home or self-care (01) ==
LOC: ED 09:41 → AC 13:48
PROVIDERS: Admitting Provider Internal Medicine; Emergency Provider Emergency Medicine; PCP Internal Medicine; Referring Provider Emergency Medicine; Visit Provider Internal Medicine
DX: K57.20 Diverticulitis of large intestine with perforation and abscess without bleeding (principal); K21.9 Gastro-esophageal reflux disease without esophagitis; E78.5 Hyperlipidemia, unspecified; I10 Essential (primary) hypertension; Z20.822 Contact with and (suspected) exposure to COVID-19; Z66 Do not resuscitate; Z87.891 Personal history of nicotine dependence
CPT/HCPCS: 36415; 74177; 80048; 80053; 81003; 81015; 83690; 83880; 85025; 87635; 93005; 94760; 96365; 96366; 96372; 96375; 96376; 99284; 99291; C9803; G0378; J1650; J2405; J2543; J7050

== ENCOUNTER → 2022-10-31 16:07 | Outpatient (CLI) | payer MEDICARE, SELFPAY ==
[2022-10-31 17:40] LABS: Alanine Aminotransferase 33 IU/L (<50); Albumin 4.3 g/dL (3.5-5.0); Albumin Globulin Ratio 1.5 (1.0-2.8); Alkaline Phosphatase 56 U/L (38-126); Aspartate Aminotransferase 34 IU/L (17-59); BUN Creatinine Ratio 26.7 (6-22); Bilirubin Total 0.5 mg/dL (0.2-1.3); Blood Urea Nitrogen 27 mg/dL (9-20); Calcium 8.6 mg/dL (8.4-10.2); Carbon Dioxide 34 mmol/L (22-32); Chloride 99 mmol/L (98-107); Cholesterol 125 mg/dL (140-199); Estimated Glomerular Filt Rate > 60 mL/min (>60); Globulin 2.8 g/dL (1.7-4.1); Glucose 88 mg/dL (80-110); HDL Cholesterol 59 mg/dL (40-60); HEMOLYSIS < 15 (0-50); LDL Cholesterol Calculated 47 mg/dL (<100); Potassium 4.1 mmol/L (3.4-5.1); Sodium 138 mmol/L (137-145); Total Protein 7.1 g/dL (6.3-8.2); Triglycerides 97 mg/dL (35-150)
== END ==
PROVIDERS: PCP Internal Medicine; Referring Provider Internal Medicine; Visit Provider Internal Medicine
DX: E78.2 Mixed hyperlipidemia (principal); I10 Essential (primary) hypertension
CPT/HCPCS: 36415; 80053; 80061

== ENCOUNTER → 2023-11-05 10:39 | Outpatient (CLI) | payer MEDICARE, SELFPAY ==
[2023-11-05 11:53] LABS: Aspartate Aminotransferase 29 IU/L (17-59); BUN Creatinine Ratio 21.7 (6-22); Blood Urea Nitrogen 23 mg/dL (9-20); Calcium 9.4 mg/dL (8.4-10.2); Carbon Dioxide 31 mmol/L (22-32); Chloride 103 mmol/L (98-107); Cholesterol 139 mg/dL (140-199); Estimated Glomerular Filt Rate > 60 mL/min (>60); Glucose 93 mg/dL (80-110); HDL Cholesterol 61 mg/dL (40-60); HEMOLYSIS < 15 (0-50); LDL Cholesterol Calculated 63 mg/dL (<100); Potassium 4.1 mmol/L (3.4-5.1); Sodium 140 mmol/L (137-145); Triglycerides 77 mg/dL (35-150)
== END ==
PROVIDERS: PCP Internal Medicine; Referring Provider Internal Medicine; Visit Provider Internal Medicine
DX: E78.2 Mixed hyperlipidemia (principal); I10 Essential (primary) hypertension
CPT/HCPCS: 36415; 80048; 80061; 84450

== ENCOUNTER → 2025-01-05 15:11 | Outpatient (CLI) | payer MEDICARE, SELFPAY ==
--- NOTE | 2025-01-05 15:13 | DI.RAD.S_ITS ---
PROCEDURE: XR CHEST 2V INDICATIONS: left chest pain TECHNIQUE: 2 views of the chest were acquired. COMPARISON: None. FINDINGS: Surgical changes and devices: None. Lungs and pleura: Lungs are clear. No pleural effusions or pneumothorax. Mediastinum: Mediastinal contours are normal. Heart size is normal. Bones and chest wall: No suspicious bony abnormalities. Soft tissues appear unremarkable. IMPRESSION: No acute cardiopulmonary abnormality is seen. Approved by: Jeff Perez M.D. on 01/06/2025 at 17:58
[2025-01-05 15:57] LABS: Hematocrit 40.7 % (41-53); Mean Corpuscular HGB Conc 34.3 % (30-36); Mean Corpuscular Hemoglobin 31.5 PG (26-34); Mean Corpuscular Volume 91.7 fL (80-100); Platelet Count 212 X10^3/uL (150-400); Red Blood Cell Count 4.44 X10^6/uL (4.5-5.9); Red Cell Distribution Width 13.5 % (11.6-14.8); White Blood Cell Count 8.7 X10^3/uL (4.5-11.0)
[2025-01-05 16:17] LABS: Aspartate Aminotransferase 30 IU/L (17-59); BUN Creatinine Ratio 26.9 (6-22); Blood Urea Nitrogen 29 mg/dL (9-20); Carbon Dioxide 31 mmol/L (22-32); Chloride 97 mmol/L (98-107); Cholesterol 130 mg/dL (140-199); Estimated Glomerular Filt Rate > 60 mL/min (>60); Glucose 109 mg/dL (70-99); HDL Cholesterol 57 mg/dL (40-60); HEMOLYSIS 18 (0-50); LDL Cholesterol Calculated 52 mg/dL (<100); Sodium 135 mmol/L (137-145); Triglycerides 104 mg/dL (35-150)
[2025-01-05 16:30] LABS: Appearance Urine UA CLEAR; Bilirubin Urine UA NEGATIVE (NEGATIVE); Color Urine UA YELLOW; Glucose Urine UA NEGATIVE (Negative); Ketones Urine UA TRACE (NEGATIVE); Leukocyte Esterase Urine UA NEGATIVE (NEGATIVE); Nitrite Urine UA NEGATIVE (Negative); Occult Blood Urine UA 2+ (Negative); Protein Urine UA NEGATIVE (Negative); Urobilinogen Urine UA 0.2 E.U./dL (0.2)
[2025-01-05 16:38] LABS: Bacteria Urine Occasional (0-1); Culture Indicated Urine Cult Not Indicated; Mucus Urine 1+ (Negative); RBC Urine 5-10/HPF (0-5/HPF); Squamous Epithelial Cell Urine 0-1 /HPF (0-5/HPF); Urine Volume 10mL (spun); WBC Urine 0-1/HPF (0-5/HPF)
[2025-01-05 16:47] LABS: Prostate Specific Antigen 55.7 ng/mL (0.10-4.00)
[2025-01-05 16:53] LABS: TSH w/ Reflex to FT4 1.24 uIU/mL (0.47-4.68)
== END ==
PROVIDERS: PCP Internal Medicine; Referring Provider Internal Medicine; Visit Provider Internal Medicine
DX: R07.89 Other chest pain (principal); I10 Essential (primary) hypertension; N40.1 Benign prostatic hyperplasia with lower urinary tract symptoms; E78.2 Mixed hyperlipidemia; N13.8 Other obstructive and reflux uropathy
CPT/HCPCS: 36415; 71046; 80048; 80061; 81001; 84153; 84443; 84450; 85027

== ENCOUNTER → 2025-01-15 09:31 | Outpatient (CLI) | payer MEDICARE, SELFPAY ==
--- NOTE | 2025-01-15 09:32 | DI.MRI.S_ITS ---
PROCEDURE: MR PELVIC PROSTATE PROTOCOL INDICATIONS: elevated PSA TECHNIQUE: Coronal HASTE, axial T1 FSE with fat saturation, 3-plane nonbreath-hold T2 FSE. After the administration of contrast, dynamic axial, delayed axial and coronal VIBE or 2-D FLASH with fat saturation through the pelvis. Diffusion weighted imaging and ADC was performed. COMPARISON: None. FINDINGS: Image quality: Diffusion weighted and dynamic contrast enhanced images are diagnostic. Prostate: Gland size is 6.1 x 5.2 x 5.1 cm; ellipsoid gland volume is 84 mL. PSA density of 0.64, abnormal. Lesion 1: Location: Left peripheral zone, base to apex, on axial series 4, image 14 and coronal series 5, image 18. Size: 4.5 x 3.1 cm. T2W signal: Hypointense. DWI signal: Markedly hyperintense. ADC signal: Markedly hypointense. Enhancement: Yes. Extracapsular extension: Yes. Extension into the left-sided seminal vesicle and neurovascular bundle. Probable involvement of the base of the right seminal vesicle. PI-RADS score: 5 Genitourinary system: Bladder wall thickness is normal. Distal ureters are non distended. Bowel and peritoneum: No pathologic free pelvic fluid. Inferior colon and small bowel loops are normal in caliber. Colonic diverticulosis without evidence of diverticulitis. Nodes and vessels: Abnormal left internal iliac chain node measuring 8 mm short axis (series 5, image 18). Soft tissues: No inguinal hernias. Bones: Marrow demonstrates normal overall signal, without lesions to suggest metastases. 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 Abnormal left internal iliac chain node, suspicious for ann disease. No abnormal enhancement of the osseous structures. Dictated by: Kevin Snell M.D. on 01/17/2025 at 10:41 Approved by: Kevin Snell M.D. on 01/17/2025 at 10:46
== END ==
PROVIDERS: PCP Internal Medicine; Referring Provider Internal Medicine; Visit Provider Internal Medicine
DX: N40.1 Benign prostatic hyperplasia with lower urinary tract symptoms (principal); N13.8 Other obstructive and reflux uropathy; N42.9 Disorder of prostate, unspecified; R59.0 Localized enlarged lymph nodes; R97.20 Elevated prostate specific antigen [PSA]; K57.90 Diverticulosis of intestine, part unspecified, without perforation or abscess without bleeding
CPT/HCPCS: 72197; A9579

== ENCOUNTER 2025-04-14 09:38 | Day surgery (SDC) | payer MEDICARE, SELFPAY ==
[2025-02-09 09:44] VITALS: BMI 28.0
--- NOTE | 2025-04-14 | PATH_ITS ---
[facility] Accession Number: [id number] No. of containers..01 Tissue . 01 Material submitted: . gastrointestinal site - GASTRIC MASS . 01 Diagnosis: GASTRIC MASS: Gastric mucosa with no diagnostic alterations. No dysplasia, malignancy, polyp, or intestinal metaplasia identified. No Helicobacter organisms identified on H/E stain. See comment. . Specimen Comments: The preliminary findings were discussed by Dr. Jensen with Dr. Gutiérrez on 04/22/2025 at 1240. Subsequent special stains and additional levels yielded no evidence of neoplasia. The possibility of an extrinsic lesion cannot be ruled out and correlation with clinical and imaging findings is recommended. [facility] 04/25/2025 1409 Local . 01 Electronically signed: . Marvin Jensen MD, Pathologist NPI- [id number] . 01 Gross description: . Received one formalin-filled container, labeled with the patient's name, labeled gastric mass are multiple fragments of scruggs, soft tissue which range in size from less than 0.1 cm to 0.4 x 0.2 x 0.2 cm. All fragments are totally submitted in cassette A1. ([facility] [place][id number][place] /[facility] 04/25/2025 1409 Local . 01 Microscopic: . GASTRIC MASS: Sections show gastric mucosa with portions of muscularis mucosae and superficial submucosa. The strands of muscularis mucosae appear somewhat prominent. They are confirmed to be smooth muscle by positive staining with an SMA immunostain. No evidence of gastrointestinal stromal tumor (negative DOG1) or granular cell tumor (negative S100) are seen. All controls stain as expected. . 01 Pathologist provided ICD-10: K31.89, R93.3 . 01 CPT . 317131, F76317, [id number] Specimen Comment: A courtesy copy of this report has been sent to [phone] Performed at: [address] [place] [address], [place], [place] [id number] MD Marvin Jensen MD Phone: [phone]
[2025-04-14 09:53] VITALS: BMI 27.3
[2025-04-14 09:58] VITALS: BP 147/74; PULSE 69; RESP 16; TEMP 36.2; O2SAT 96
[2025-04-14] MEDS: LACTATED RINGERS 1,000 ML 42 ML IV (10:00)
--- NOTE | 2025-04-14 10:02 | PM.PREOP ---
Pre-operative Note COVID-19 COVID-19 status: Not tested Interval Note History & Physical reviewed/Exam performed by Physician: Yes Changes to H&P: No ASA Class (for procedural sedation): III
[2025-04-14 10:31] VITALS: BP 96/56; PULSE 56; RESP 16; TEMP 36.9; O2SAT 95
--- NOTE | 2025-04-14 10:35 | P.OP.EGD_ITS ---
Operative Date/Time/Diagnoses Date of procedure: 04/14/25 Time of procedure: 10:36 Pre-op diagnosis: Abnormal imaging of the GI tract Post-op diagnosis: same Procedure & Clinicians Study performed: Esophagogastroduodenoscopy Same procedure(s) as scheduled: Yes Surgeon: Trenton Gutiérrez Anesthesia Type: MAC +/- Procedure Notes Procedure in detail: Surgeon: Trenton Gutiérrez MD Anesthesia: Margarita Live MILLINERY TEACHER A timeout was performed. A bite blocked was placed. The patient was positioned in the left lateral decubitus position. Anesthesia was administered. The endoscope was inserted through the bite block and passed through the esophagus and stomach and into the duodenum. The duodenal mucosa appeared normal. The scope was withdrawn into the duodenal bulb and no abnormalities were seen. The scope was withdrawn into the stomach. Upon retroflexion a 2-3 cm submucosal mass was noted in the fundus. The mucosa appeared to be uninvolved by the underlying mass which appeared firmer than a typical lipoma. Biopsies were taken with standard forceps. Initially mucosal biopsies were taken but the underlying firm tissue was eventually exposed and also biopsied. There was some persistent bleeding from the biopsy wound which was stopped with the use of argon beam plasma coagulation. Once hemostasis was observed the scope was withdrawn into the esophagus and no further abnormalities were seen. The scope was withdrawn. The patient was awakened and brought to recovery. Sedation time: 15 minutes Findings: 2-3 cm mass in the fundus Post-procedure Disposition: PACU
[2025-04-14 10:36] VITALS: BP 113/59; PULSE 54; RESP 16; O2SAT 97
[2025-04-14 10:37] VITALS: BP 105/56; PULSE 54; RESP 16; O2SAT 95
[2025-04-14 10:43] VITALS: BP 117/59; PULSE 53; RESP 16; O2SAT 96
[2025-04-14 10:46] VITALS: BP 110/59; PULSE 56; RESP 16; O2SAT 98
== END 2025-04-14 11:05 | disposition home or self-care (01) ==
PROVIDERS: PCP Internal Medicine; Referring Provider Surgery; Visit Provider Surgery
PROC: 0DJ08ZZ Inspection of Upper Intestinal Tract, Via Natural or Artificial Opening Endoscopic (ICD-10-PCS; CPT 43239; principal; 2025-04-14 11:00)
DX: R93.5 Abnormal findings on diagnostic imaging of other abdominal regions, including retroperitoneum (principal); C61 Malignant neoplasm of prostate; Z87.891 Personal history of nicotine dependence
CPT/HCPCS: 43239; J2704; J7120

== ENCOUNTER → 2025-04-22 14:47 | Outpatient (CLI) | payer MEDICARE, SELFPAY ==
[2025-02-09 09:44] VITALS: BMI 28.0
--- NOTE | 2025-04-22 14:48 | DI.ECHO.S_ITS ---
[facility]---------+ [facility] : : [address] : : [place] : : [id number] : : Phone: [phone] Echocardiogram Report + + :Name: FELA SANCHES Study Date: 04/22/2025 Height: 69.5 in: :[facility] ReadingLocation: Weight: 190 lb : : Gender: Male BSA: 2.0 m2 : :: 1940 Age: 85 yrs BP: 127/70 mmHg: :Reason For Study: Aortic stenosis : :Ordering Physician: REED, : :PER Performed By: David Gamboa : :Referring: PER MCBRIDE : + + Interpretation Summary The ejection fraction is estimated to be 60-65%. Diastolic function is indeterminate. The right ventricle is normal in size and function. There is mild mitral regurgitation. There is mild aortic valve sclerosis without hemodynamically significant stenosis. Pulmonary artery pressures cannot be estimated because of the lack of a measurable TR jet velocity but the IVC suggests a CVP of around 3 mmHg. No significant change compared to prior study 12/12/2021. Procedure: A two-dimensional transthoracic echocardiogram with color flow and Doppler was performed. The study quality was technically adequate. Comparison is made with the echocardiogram of 12/12/2021. The patient was in normal sinus rhythm during the exam. Left Ventricle: The left ventricle is normal in size and wall thickness. Overall left ventricular systolic function is preserved. The ejection fraction is estimated to be 60-65%. There are no focal wall motion abnormalities. Diastolic function is indeterminate. Right Ventricle: The right ventricle is normal in size and function. Atria: The left atrial size is normal. Right atrial size is normal. There is no Doppler evidence for an interatrial shunt. Mitral Valve: The mitral valve leaflets appear mildly thickened. The mitral valve leaflets appear to open well. There is mild mitral annular calcification. There is no mitral valve stenosis. There is mild mitral regurgitation. Aortic Valve: The aortic valve is trileaflet. The aortic valve is mildly calcified. There is mild aortic valve sclerosis. The calculated aortic valve area is 1.6 cm2. The peak aortic velocity is 2.0 m/sec. The aortic valve mean gradient is 9.3 mmHg. There is no hemodynamically significant valvular aortic stenosis. No aortic regurgitation is present. Tricuspid Valve: The tricuspid valve is not well visualized, but is grossly normal. There is trace tricuspid regurgitation. Pulmonary artery pressures cannot be estimated because of the lack of a measurable TR jet velocity but the IVC suggests a CVP of around 3 mmHg. Pulmonic Valve: The pulmonic valve is not well seen, but is grossly normal. There is trace pulmonic regurgitation. Great Vessels: The aortic root is normal size. The ascending aorta is normal in size. The aortic arch is normal in size. The pulmonary artery is normal size. The IVC is of normal diameter and collapses greater than 50% with a sniff. This suggests a low right atrial pressure of 3 mm Hg. Pericardium/ Pleura There is no pericardial effusion. MMode/2D Measurements & Calculations LVIDd: 4.6 cm LVOT diam: 2.0 cm LVIDs: 2.8 cm Ao root diam: 3.7 cm FS: 38.4 % asc Aorta Diam: 3.3 cm IVSd: 1.0 cm Ao Arch Diam (Prox Trans): 2.5 cm LVPWd: 0.96 cm LV amado. diameter/BSA (cm/m^2): 2.3 LV sys. diameter/BSA (cm/m^2): 1.4 LA A2 area: 18.3 cm2 RA long axis: 4.7 cm LA A4 area: 20.2 cm2 RA area: 11.3 cm2 LA length (vol): 5.5 cm RA vol: 23.4 ml LA vol: 57.0 ml RA : 11.5 ml/m2 LA vol index: 28.1 ml/m2 IVC diam: 1.8 cm RVD1 (basal): 3.7 cm RVD2 (mid): 3.3 cm TAPSE: 2.2 cm Doppler Measurements & Calculations Ao V2 max: 195.4 cm/sec LVOT Max Barrie: 88.4 cm/sec Ao V2 mean: 144.9 cm/sec LV V1 max P.1 mmHg Ao max P.3 mmHg LV V1 VTI: 18.9 cm Ao mean P.3 mmHg VERONICA(I,D): 1.6 cm2 Ao V2 VTI: 39.0 cm VERONICA(V,D): 1.5 cm2 sev ratio: 0.49 VERONICA indexed to BSA (cm^2/m^2): 0.78 MV E max barrie: 96.4 cm/sec TR max barrie: 243.3 cm/sec MV A max barrie: 91.6 cm/sec TR max P.7 mmHg MV E/A: 1.1 PA V2 max: 96.1 cm/sec Med Peak E' Barrie: 5.8 cm/sec PA V2 mean: 72.1 cm/sec E/E' med: 16.8 PA mean P.3 mmHg Lat Peak E' Barrie: 6.4 cm/sec PA pr(Accel): 34.0 mmHg E/E' lat: 15.1 E/e' average: 15.9 MV dec time: 0.20 sec SV(LVOT): 61.6 ml Reading Physician:05:01 PM
== END ==
PROVIDERS: PCP Internal Medicine; Referring Provider Internal Medicine; Visit Provider Internal Medicine
DX: I35.8 Other nonrheumatic aortic valve disorders (principal); I34.0 Nonrheumatic mitral (valve) insufficiency; I34.81 Nonrheumatic mitral (valve) annulus calcification
CPT/HCPCS: 93306

== ENCOUNTER → 2025-07-11 09:00 | Outpatient (CLI) | payer MEDICARE, SELFPAY ==
[2025-02-09 09:44] VITALS: BMI 28.0
[2025-07-11 10:46] LABS: Prostate Specific Antigen 0.507 ng/mL (0.10-4.00)
== END ==
PROVIDERS: Urology; PCP Internal Medicine; Referring Provider Internal Medicine; Visit Provider Internal Medicine
DX: C61 Malignant neoplasm of prostate (principal)
CPT/HCPCS: 36415; 84153